=== PATIENT | female | born 1975 | race Caucasian/White ===

== ENCOUNTER 2017-03-08 15:37 | Inpatient (IN) | payer OTHER ==
[~2017-03-08] VITALS: Ht 170.2 cm; Wt 68.0 kg
[2017-03-08] MEDS ORDERED: DILANTIN 100 M100 MG PO (16:39)
[2017-03-08] MEDS ORDERED: NEURONTIN800 MG PO (16:42)
[2017-03-08] MEDS ORDERED: FIORICET TAB1 EA PO (16:43)
[2017-03-08] MEDS ORDERED: KLONOPIN0.5 MG PO (16:43)
[2017-03-08] MEDS ORDERED: IMITREX100 MG PO (16:43)
[2017-03-08] MEDS ORDERED: KEPPRA250 MG PO (16:44)
[2017-03-09 04:15] LABS: HEMOGLOBIN 11.8 gm/dl (12.3-15.3); RED BLOOD COUNT 3.71 M/UL (4.00-5.10); WHITE BLOOD COUNT 8.2 K/UL (4.5-11.0)
[2017-03-09 04:40] LABS: BUN/CREATININE RATIO 23 (0-10)
[2017-03-09] MEDS ORDERED: CEFUROXIME250 MG PO (10:40)
== END 2017-03-09 11:07 | disposition home or self-care (01) | DRG 918 ==
LOC: CCU 15:37
PROVIDERS: ADMIT Internal Medicine
DX: T42.0X1A Poisoning by hydantoin derivatives, accidental (unintentional), initial encounter (principal); N30.00 Acute cystitis without hematuria; F19.10 Other psychoactive substance abuse, uncomplicated; G40.909 Epilepsy, unspecified, not intractable, without status epilepticus; F31.9 Bipolar disorder, unspecified; F41.9 Anxiety disorder, unspecified; F17.210 Nicotine dependence, cigarettes, uncomplicated; Z90.49 Acquired absence of other specified parts of digestive tract; Z98.51 Tubal ligation status; Z91.041 Radiographic dye allergy status; Z79.899 Other long term (current) drug therapy; Z82.49 Family history of ischemic heart disease and other diseases of the circulatory system; Z83.3 Family history of diabetes mellitus; Z80.9 Family history of malignant neoplasm, unspecified
CPT/HCPCS: 36415; 80048; 80185; 80307; 83735; 85027; 87040; C9113; J0696; J7030